=== PATIENT | female | born 1985 | race Caucasian/White ===

== ENCOUNTER 2016-11-05 14:13 | Emergency (ER) | payer OTHER ==
[~2016-11-05] VITALS: Ht 165.1 cm; Wt 86.2 kg
[2016-11-05] MEDS ORDERED: IBUP-1114 PO (14:31)
[2016-11-05] MEDS ORDERED: KETOROLAC 30 MG/ML VIAL (J1885) IV ONE (16:30)
[2016-11-05] MEDS ORDERED: KETOROLAC 30 MG/ML VIAL (J1885) IM ONE (16:45)
[2016-11-05] MEDS ORDERED: IBUPROFEN 600 MG TAB PO ONE (16:45)
[2016-11-05 17:00] LABS: BASO % 0.2 % (0.0-1.0); EOS # 0.1 K/mm3 (0.0-0.50); EOS % 0.8 % (0.0-3.0); LARGE UNSTAINED CELL % 0.4 % (0.0-4.0); LYMPH # 0.9 K/mm3 (1.5-4.5); LYMPH % 6.9 % (24.0-44.0); MEAN CORPUSCULAR HEMOGLOBIN 25.8 pg (27.0-33.0); MEAN CORPUSCULAR HGB CONC 30.6 g/dl (32.0-36.5); MEAN CORPUSCULAR VOLUME 84.5 fl (80.0-96.0); MONO # 0.3 K/mm3 (0.0-0.8); MONO % 2.8 % (0.0-5.0); NEUTROPHILS # 10.7 K/mm3 (1.8-7.7); PLATELET COUNT, AUTOMATED 221 k/mm3 (150-450); RED CELL DISTRIBUTION WIDTH 13.7 % (11.5-14.5)
[2016-11-05 17:19] LABS: ANION GAP 8 MEQ/L (8-16); BLOOD UREA NITROGEN 12 MG/DL (7-18); CALCIUM LEVEL 8.3 MG/DL (8.5-10.1); CARBON DIOXIDE LEVEL 22 MEQ/L (21-32); CHLORIDE LEVEL 107 MEQ/L (98-107); CREATININE FOR GFR 0.67 MG/DL (0.55-1.02); GLOMERULAR FILTRATION RATE > 60.0 (>60); GLUCOSE, FASTING 94 MG/DL (70-105); SODIUM LEVEL 137 MEQ/L (136-145)
--- NOTE | 2016-11-05 17:40 | REPUSA ---
CLINICAL HISTORY: Abdominal pain. TECHNIQUE: Multiple axial, sagittal and coronal CT images were obtained through the abdomen and pelvi s without administration of oral or IV contrast material. COMMENTS: The liver is of uniform attenuation without mass or defect. There is no intra or extrahepatic biliary ductal dilatation. The spleen is normal. The gallbladder is contracted. The pancreas is of normal c ontour and attenuation characteristics. There is no evidence of adrenal mass. The kidneys are normal in size, shape and configuration. No right renal or ureteral calculi are ident ified. There is no hydroureter or hydronephrosis. Several punctate nonobstructing calculi noted in th e midpole of the left kidney. There is no evidence for appendicitis. There is no bowel wall thickening. No evidence for small or la rge bowel obstruction. There is no evidence of abdominal ascites or lymphadenopathy. Diffuse bladder wall thickening is seen measuring up to 8 mm may represent cystitis. There is no julisa dence of intrinsic or extrinsic bladder mass. There is no pelvic ascites or lymphadenopathy. The uterus and ovaries are unremarkable. Images of the lung bases show no evidence of pleural or parenchymal mass. There are no pleural effusi ons. The bony structures are free of lytic or blastic lesions. IMPRESSION: Several punctate nonobstructing calculi noted in the midpole of the left kidney. Diffuse bladder wall thickening is seen measuring up to 8 mm may represent cystitis. Thank you for your kind referral of this patient.
[2016-11-05] MEDS ORDERED: MACR100C3 PO (17:52)
[2016-11-05] MEDS ORDERED: PYRI200T5 PO (17:52)
[2016-11-05] MEDS ORDERED: NITROFURANTOIN (MACROBID) 100 MG CAP PO ONE (18:00)
[2016-11-05] MEDS ORDERED: PHENAZOPYRIDINE 100 MG TAB PO ONE (18:00)
[2016-11-05 18:02] VITALS: BP 134/75
--- NOTE | 2016-11-06 15:51 | ED PDOC ---
Post-Departure Follow-Up radiology report faxed to [facility] Sara Bae MD November 06, 2016 15:51
== END 2016-11-05 18:17 | disposition home or self-care (01) ==
LOC: M ED 15:47
DX: N20.0 Calculus of kidney (principal); N39.0 Urinary tract infection, site not specified; R39.89 Other symptoms and signs involving the genitourinary system

== ENCOUNTER → 2016-11-05 | Outpatient (REF) | payer OTHER ==
[~2016-11-05] MED LIST: IBUP-1114 PO; MACR100C3 PO; PYRI200T5 PO
== END ==
LOC: M SFHCLERA 12:18
PROVIDERS: ATTEND Nurse Practitioner Family
DX: R39.89 Other symptoms and signs involving the genitourinary system (principal)

== ENCOUNTER → 2016-12-05 | Outpatient (CLI) | payer OTHER ==
--- NOTE | 2016-12-05 14:27 | REP ---
MR ORBITS WITHOUT AND WITH CONTRAST: HISTORY: Optic nerved disorder. CONTRAST: ProHance 17.2 mL. The globes, optic nerves and rectus muscles are normal in appearance. There is no orbital lesion. There is no abnormal enhancement. There is minimal atrophy of the optic chiasm. The pituitary gland, cavernous, sinuses and hypothalamus are normal in appearance. There is no intraparenchymal hemorrhage, mass or midline shift. The ventricular system is normal in appearance. Cavum septi pellucidi and vergae are present. There is no extracerebral collection. Minimal mucosal thickening is present in the right maxillary sinus. IMPRESSION: There is no orbital lesion. Signed by Kennedy Rojas MD 12/05/2016 02:28 P
== END ==
LOC: M RAD 10:08
PROVIDERS: ATTEND Family Medicine
DX: H47.093 Other disorders of optic nerve, not elsewhere classified, bilateral (principal)
CPT/HCPCS: 70553; A9576

== ENCOUNTER → 2017-01-18 | Outpatient (REF) | payer OTHER ==
[~2017-01-18] MED LIST changes: -MACR100C3 PO; +MACR100C43 PO; +PYRI1TAB5 PO; -PYRI200T5 PO
== END ==
LOC: M SFHCLERA 10:04
PROVIDERS: ATTEND Physician Assistant
DX: N30.01 Acute cystitis with hematuria (principal)